=== PATIENT | male | born 2000 | race Caucasian/White ===

== ENCOUNTER 2023-08-16 00:36 | Emergency (ER) | payer OTHER, SELFPAY ==
[2023-08-16 00:41] VITALS: BP 206/123; PULSE 93; RESP 16; TEMP 36.8; O2SAT 95; BMI 34.0
--- NOTE | 2023-08-16 00:46 | CTR_ITS ---
PROCEDURE INFORMATION: Exam: CT Head Without Contrast Exam date and time: 08/16/2023 12:07 AM Age: 23 years old Clinical indication: Pain; Headache; Patient HX: BRITO with nausea and hypertension TECHNIQUE: Imaging protocol: Computed tomography of the head without contrast. Radiation optimization: All CT scans at this facility use at least one of these dose optimization techniques: automated exposure control; mA and/or kV adjustment per patient size (includes targeted exams where dose is matched to clinical indication); or iterative reconstruction. COMPARISON: No relevant prior studies available. RADIATION DOSE METRICS: Total DLP (mGy-cm): 1025.68 FINDINGS: Brain: No hemorrhage. No edema, mass effect or midline shift. Cerebral ventricles: No ventriculomegaly. Paranasal sinuses: Visualized sinuses are unremarkable. No fluid levels. Mastoid air cells: No mastoid effusion. Bones/joints: No acute fracture. Soft tissues: Unremarkable. CT/CT head wo con* [id number] IMPRESSION: No acute intracranial abnormality.
--- NOTE | 2023-08-16 00:46 | ED_ITS ---
HPI - Headache 2 General: Chief Complaint: Headache Stated Complaint: headache, high bp, n/v Time Seen by Provider: 08/16/23 00:38 Source: patient Mode of arrival: ambulatory Limitations: no limitations History of Present Illness: 23-year-old male states that he woke up this evening at 6 PM with a headache. He states he had migraines before he is having photophobia and phonophobia. States the headaches actually improved a little is currently a 6 out of 10 he had some nausea with this headache. He is quite hypertensive here blood pressure 206/123 does have a history of hypertension he is on metoprolol states he did take it today. He denies any fevers denies any blurred vision denies any neck pain Associated symptoms: Reports nausea; Deny chest pain, fever(s), rash or vomiting Review of Systems 2 Const: Denies: fever(s), chills, body aches or change in appetite Eyes: Denies: blurry vision or eye discomfort ENMT: Denies: throat pain or dental pain Card: Denies: chest pain Resp: Denies: dyspnea GI: Reports: nausea; Denies: abdominal pain, vomiting or diarrhea Musc: Denies: neck pain or back pain Skin/Breast: Denies: rash Neuro: Reports: headache(s) Physical Exam 2 Const: COMMON NORMALS: no acute distress, patient oriented x3 and healthy appearing HENMT: COMMON NORMALS: normocephalic and atraumatic HEAD & SCALP: n ormocephalic and atraumatic Eye: COMMON NORMALS: Equal, round and reactive pupils present and EOMs intact bilaterally PUPIL: Yes Equal, round and reactive pupils present Neck/C-Spine: COMMON NORMALS: full ROM and supple Chest: COMMONS NORMALS: normal inspection of the chest Resp: COMMON NORMALS: normal respiratory effort Cardio: COMMON NORMALS: regular rate, regular rhythm and No murmurs present (Cardio) RATE: regular rate RHYTHM: regular rhythm Extremity: COMMON NORMALS: normal to inspection and full ROM Neuro: COMMON NORMALS: patient oriented x3, moves all extremities and no focal motor deficits Psych: COMMON NORMALS: mental status grossly normal, Normal thought process present and cooperative THOUGHT PROCESS: Normal thought process present Skin: COMMON NORMALS: no rashes or lesions noted and no wounds GENERAL SKIN EXAM: no rashes or lesions noted Course 2 Vital Signs: Vital signs: Vital Signs Temperature 98.2 F 08/16/23 00:41 Pulse Rate 87 08/16/23 02:00 Respiratory Rate 16 08/16/23 02:00 Blood Pressure 143/88 08/16/23 02:00 Pulse Oximetry 94 08/16/23 02:00 Oxygen Delivery Me thod Room Air 08/16/23 00:41 MDM - Headache Medical Decision Making Patient presents with a headache with hypertension likely migraine headache is consistent with his previous migraines his headache resolved. Reglan and Shiloadryl's blood pressure improved head CT is normal no signs of subarachnoid hemorrhage or meningitis he is follow-up with PCP return if worsening. Medical Records I reviewed the patient's medical records. Lab Data I reviewed the patient's lab results. 08/16/23 00:54 08/16/23 00:[address] 08/16/23 00:46 IMPRESSION: No acute intracranial abnormality. Laboratory Results WBC 9.46 10^3/uL (3.29-11.43) 08/16/23 00:54 RBC 5.39 10^6/uL (3.85-5.65) 08/16/23 00:54 Hgb 16.60 g/dL (11.27-16.99) 08/16/23 00:54 Hct 47.8 % (37-53) 08/16/23 00:54 MCV 88.7 fl (82-101) 08/16/23 00:54 MCH 30.8 pg (27-33) 08/16/23 00:54 MCHC 34.7 g/dL (30-55) 08/16/23 00:54 RDW 13.0 % (12.1-15.1) 08/16/23 00:54 Plt Count 323 10^3/cmm (157-399) 08/16/23 00:54 MPV 8.9 fL (7.4-10.4) 08/16/23 00:54 Neut % (Auto) 56.9 % 08/16/23 00:54 Lymph % (Auto) 34.2 % 08/16/23 00:54 Ward % (Auto) 7.2 % 08/16/23 00:54 Eos % (Auto) 1.0 % 08/16/23 00:54 Baso % (Auto) 0.5 % 08/16/23 00:54 Neut # (Auto) 5.38 10^3/uL (1.8-7.7) 08/16/23 00:54 Lymph # (Auto) 3.2 10^3/uL (0.8-4.8) 08/16/23 00:54 Ward # (Auto) 0.7 10^3/uL (0.2-0.9) 08/16/23 00:54 Eos # (Auto) 0.1 10^3/uL (0.0-0.8) 08/16/23 00:54 Baso # (Auto) 0.1 10^3/uL (0.0-0.1) 08/16/23 00:54 Nucleated RBC % (auto) 0 % 08/16/23 00:54 Nucleated RBCs # 0.0 /100WBC 08/16/23 00:54 Sodium 140 mmol/L (136-145) 08/16/23 00:54 Potassium 3.7 mmol/L (3.5-5.1) 08/16/23 00:54 Chloride 100 mmol/L (98-107) 08/16/23 00:54 Carbon Dioxide 28 mmol/L (22-29) 08/16/23 00:54 Anion Gap 15.7 (5-19) 08/16/23 00:54 BUN 8 mg/dL (6-20) 08/16/23 00:54 Creatinine 0.6 mg/dL (0.7-1.2) L 08/16/23 00:54 GFR Calculation 167.0 mL/min (90-130) H 08/16/23 00:54 Glucose 95 mg/dL (65-115) 08/16/23 00:54 Calculated Osmolality 288 mOsm/kg (285-295) 08/16/23 00:54 Calcium 9.5 mg/dL (8.5-10.5) 08/16/23 00:54 Total Bilirubin 0.8 mg/dL (0.15-1.2) 08/16/23 00:54 AST 56 U/L (0-40) H 08/16/23 00:54 ALT 151 U/L (0-41) H 08/16/23 00:54 Alkaline Phosphatase 96 U/L (40-130) 08/16/23 00:54 Total Protein 7.6 g/dL (6.6-8.7) 08/16/23 00:54 Albumin 4.7 g/dL (3.5-5.2) 08/16/23 00:54 Globulin 2.9 g/dL (1.3-4.6) 08/16/23 00:54 All radiology interpretation(s) finalized by discharge Discharge Plan Discharge Patient Disposition: Home Clinical Impression: Headache, Hypertension Condition: Stable Discharge Orders: Discharge ED (Routine); Ordered 08/16/23 Ordered By: Alek Verdugo Referrals: Tasneem Askew [Primary Care Provider] - Discharge Diet: Advance as tolerated Discharge Activity: Resume usual activity Patient Instructions: Hypertension (ED), General Headache (ED) Coding Level of Care Code ED Database Programmer Analyst for Erick Brandt
[2023-08-16] MEDS: metoclopramide 5 mg/mL SDV 2 mL 10 MG IVP (00:58)
[2023-08-16] MEDS: diphenhydrAMINE 50 mg/mL SDV 1mL IVP (00:58)
[2023-08-16] MEDS: labetalol 5 mg/mL SDV 20mL 10 MG IVP (01:02)
[2023-08-16 01:03] VITALS: BP 174/114; PULSE 93; RESP 16; O2SAT 97
[2023-08-16 01:06] LABS: Basophils # 0.1 10^3/uL (0.0-0.1); Basophils % 0.5 %; Eosinophils # 0.1 10^3/uL (0.0-0.8); Hematocrit 47.8 % (37-53); Lymphocytes # 3.2 10^3/uL (0.8-4.8); Lymphocytes % 34.2 %; Mean Corpuscular HGB Conc 34.7 g/dL (30-55); Mean Corpuscular Hemoglobin 30.8 pg (27-33); Mean Corpuscular Volume 88.7 fl (82-101); Mean Platelet Volume 8.9 fL (7.4-10.4); Monocytes # 0.7 10^3/uL (0.2-0.9); Monocytes % 7.2 %; Neutrophils # 5.38 10^3/uL (1.8-7.7); Neutrophils % 56.9 %; Nucleated Red Blood Cells % 0 %; Platelet Count 323 10^3/cmm (157-399); Red Blood Count 5.39 10^6/uL (3.85-5.65); White Blood Count 9.46 10^3/uL (3.29-11.43)
[2023-08-16 01:16] LABS: Alanine Aminotransferase 151 U/L (0-41); Albumin Level 4.7 g/dL (3.5-5.2); Alkaline Phosphatase 96 U/L (40-130); Anion Gap 15.7 (5-19); Aspartate Amino Transferase 56 U/L (0-40); Blood Urea Nitrogen 8 mg/dL (6-20); Calcium 9.5 mg/dL (8.5-10.5); Carbon Dioxide 28 mmol/L (22-29); Chloride 100 mmol/L (98-107); Creatinine Clr Calc Pharmacy 227.9073; Globulin 2.9 g/dL (1.3-4.6); Glucose 95 mg/dL (65-115); Osmolality Calculated 288 mOsm/kg (285-295); Potassium 3.7 mmol/L (3.5-5.1); Sodium 140 mmol/L (136-145); Total Bilirubin 0.8 mg/dL (0.15-1.2); Total Protein 7.6 g/dL (6.6-8.7)
[2023-08-16] MEDS: hyDRALAzine 20 mg/mL INJ 1 mL 10 MG IVP (01:43)
[2023-08-16 01:44] VITALS: BP 164/97; PULSE 87; RESP 16; O2SAT 95
[2023-08-16 02:00] VITALS: BP 143/88; PULSE 87; RESP 16; O2SAT 94
== END 2023-08-16 02:49 | disposition home or self-care (01) ==
PROVIDERS: Emergency Provider Emergency Medicine; PCP Nurse Practitioner Family
DX: R51.9 Headache, unspecified (principal); I10 Essential (primary) hypertension
CPT/HCPCS: 70450; 80053; 85025; 96374; 96375; 99285; J0360; J1200; J2765; J3490